=== PATIENT | male | born 1960 | race Caucasian/White ===

== ENCOUNTER 2022-06-16 10:16 | Day surgery (SDC) | payer MEDICARE, MEDICAID, SELFPAY ==
[2022-06-16 10:28] VITALS: BP 147/81; PULSE 86; RESP 17; TEMP 36.5; O2SAT 96
[2022-06-16] MEDS: Tropicam./Phenyleph. (1/2.5%) 5 ML BTL OD ×4 (10:40→10:50)
--- NOTE | 2022-06-16 11:11 | W.ANESPRE ---
General Info Date of Service Date Performed: 06/16/22 Height: 5 ft 8 in Weight: 94.1 kg Body Mass Index (BMI): 31.5 Surgical Procedure: Operation Date: 06/16/22 13:40 Proposed Procedure Side Surgeon p Cataract Extraction with IOL Implant Right López Bernstein MD Meds Allergies and Home Medications Allergies Allergy/AdvReac Type Severity Reaction Status Date / Time niacin Allergy Mild Itching Verified 06/16/22 10:35 [From Niaspan Extended-Release] lovastatin AdvReac Intermediate Other (See Verified 06/16/22 10:35 Comment) topiramate [From Topamax] AdvReac Intermediate Other (See Verified 06/16/22 10:35 Comment) varenicline [From Chantix] AdvReac Intermediate Psychosis Verified 06/16/22 10:35 lithium AdvReac Mild Other (See Verified 06/16/22 10:35 Comment) nabumetone AdvReac Mild Other (See Verified 06/16/22 10:35 Comment) paroxetine AdvReac Mild Agitation Verified 06/16/22 10:35 pravastatin AdvReac Mild Other (See Verified 06/16/22 10:35 Comment) rosuvastatin [From Crestor] AdvReac Mild Other (See Verified 06/16/22 10:35 Comment) simvastatin [From Zocor] AdvReac Mild Other (See Verified 06/16/22 10:35 Comment) Home Medication Medication Instructions Recorded evolocumab 140 mg/mL subcutaneous 140 mg subcut DIRECTED 06/14/22 pen injector (Aaron Robbins) lamotrigine 100 mg tablet 100 mg PO DAILY 06/14/22 lamotrigine 25 mg tablet 25 mg PO DAILY 06/14/22 nicotine (polacrilex) 4 mg buccal 4 - 8 mg buccal DIRECTED 06/14/22 lozenge Current Visit Medications: Current Medications Generic Name Dose Route Start Last Admin Trade Name Freq PRN Reason Stop Dose Admin Acetaminophen 1,000 mg 06/16/22 10:00 Acetaminophen 500 Mg Tab PO 06/16/22 16:00 Q4H PRN PRN Miscellaneous Medication 0 ml 06/16/22 10:00 06/16/22 10:50 Tropicam./Phenyleph. (1/2.5%) 5 Ml Btl OD 06/16/22 16:00 1 drp DIRECTED [facility] Administration Miscellaneous Medication 0 ml 06/16/22 10:00 Prednisolone 1%, Moxifloxacin 0.5%, Nepafenac 0.1% 5ml Btl OD 06/16/22 16:00 DIRECTED RIDGE Tetracaine HCl 0 ml 06/16/22 10:00 Tetracaine 0.5% 4 Ml Btl OD 06/16/22 16:00 DIRECTED [facility] PFSH Active Problems Active Problems: Problem Status Onset Code Nuclear age-related cataract, right eye H25.11 Posterior subcapsular age-related cataract, right eye H25.041 Medical History Medical History ADD (attention deficit disorder) Bipolar II disorder Depression Dyspepsia GERD (gastroesophageal reflux disease) Hypercholesteremia Low back pain Osteoarthritis Tobacco use Tobacco Smoking/Tobacco Use Status: Current every day Tobacco Type: cigarettes Smoking cigarettes per day: 25 Alcohol Alcohol Intake: never Substance Use Substance use: Never Substance use type: does not use Vital Signs and Lab Results Vital Signs Most Recent Vital Signs in EMR: Most Recent Vital Signs Temp Pulse Resp BP Pulse Ox 36.5 C 86 17 147/81 H 96 06/16/22 10:28 06/16/22 10:28 06/16/22 10:28 06/16/22 10:28 06/16/22 10:28 Lab Results Blood Type / Crossmatch: No Data to Display Complete Blood Count: No Data to Display Complete Metabolic Panel: No Data to Display Liver Function Panel: No Data to Display Coagulation Panel: No Data to Display Cardiac Panel: No Data to Display Arterial Blood Gas: No Data to Display Venous Blood Gas: No Data to Display Pancreas Panel: No Data to Display Thyroid Panel: No Data to Display Infectious Disease: No Data to Display Blood Cultures: No Data to Display Toxicology Panel: No Data to Display Anesthesia Assessment and Plan Anesthesia History Personal History: No History of General Anesthesia Family History: No Family History of Anesthesia Complications Exercise Tolerance Exercise Tolerance: Metabolic Equivalents<4 Pertinent Negatives Pertinent Negatives: No Symptoms of GERD Cardiac & Pulmonary Exam Cardiac Exam: Normal S1/S2 Heart Sounds Pulmonary Exam: Clear Bilateral Breath Sounds and Rales Present (right upper lobe. cleared with cough) Implantable Cardiac Device Does patient have a Pacemaker or an ICD?: No Airway Exam Known Difficult Airway: No Mallampati Class: 3 Mouth Opening: Normal (> 3cm) Thyromental Distance: Greater than 3 cm Neck Range of Motion: Full ROM Neck Circumference: Thick Teeth Condition: Normal Dentition ASA Classification ASA Score: ASA 2 Emergency Case?: No NPO Status NPO Status: NPO Clears >2 hours, Solids >8 hours Anesthesia Plan Resuscitation Status: Full Code Anesthesia Technique: MAC Anesthesia Airway Planned: Natural Airway Monitors Used: Standard Monitors Preoperative Comments:: Probably TRINI. Fearful about surgery. Cautioned on trini and sedation. Gave 1/2 MKO
[2022-06-16 11:27] VITALS: BMI 31.5
[2022-06-16] MEDS: Balanced Salt Soln.-PLUS 500 ML BAG (11:46)
[2022-06-16] MEDS: Duovisc Viscoelastic System EACH 1 EACH (11:46)
[2022-06-16] MEDS: Tetracaine 0.5% 4 ML BTL OD (11:46)
[2022-06-16] MEDS: Lidocaine 1% Pres-Free 5 ML VIAL (11:47)
[2022-06-16] MEDS: Phenylephrine/Lidocaine (15/10) MG/ML 1 ML VIAL (11:47)
[2022-06-16] MEDS: Trypan Blue 0.06% 0.5 ML SYR (11:48)
[2022-06-16] MEDS: Povidone-Iodine Ophth 30 ML BTL (11:48)
[2022-06-16 12:02] VITALS: BP 122/88; PULSE 89; RESP 18; TEMP 36.5; O2SAT 18
--- NOTE | 2022-06-16 12:04 | ROE_ITS ---
Date of service: 06/16/22 Time of Service: 12:04 Operative Note Operative Note DATE OF PROCEDURE: 06/16/22 PRE-OP DIAGNOSIS: Nuclear/posterior subcapsular cataract, right eye POST-OP DIAGNOSIS: same PROCEDURE: Cataract extraction using phacoemulsification with intraocular lens implant, right eye SURGEON: López Bernstein ANESTHESIA TYPE: Local By Surgeon and MAC Refer to Anesthesia Record ESTIMATED BLOOD LOSS: 0 PATHOLOGY: none sent COMPLICATIONS: None Patient was transported to: same day Patient's condition: stable Implants: [employer] Eyhance [id number] Indications: Progressive visual loss due to cataract, right eye Procedure Description: CATARACT SURGERY OPERATIVE REPORT PREOPERATIVE DIAGNOSIS: 1. Nuclear/posterior subcapsular cataract, right eye POSTOPERATIVE DIAGNOSIS: Same OPERATION: 1. Cataract extraction using phacoemulsification with posterior chamber intraocular lens implant, right eye. IOL: IOL Highway Design Engineer/Model: Te[employer] Eyhance DIB00 IOL Power: + 22.0 diopters IOL Serial Number: [id number] Optic Diameter: 6.0mm Haptic/Overall Diameter: 13.0mm PHACO INFO: Jay Kirke[employer]urion Vision System with OZil and Active Fluidics Cumulative Dispersed Energy (CDE): 19.08 seconds SURGEON: López Bernstein MD, CODIE ANESTHESIA: Monitored Anesthesia Care (MAC), with local sub-tenon's anesthetic infiltration COMPLICATIONS: None SPECIMENS: None INDICATIONS FOR PROCEDURE: The patient is a 61-year-old male with history of diminished visual acuity in his right eye secondary to the development of significant nuclear/posterior subcapsular cataract. He is significantly symptomatic that he desires cataract surgery and attempt to improve and maximize his vision. See office notes for detailed information. The option of cataract surgery was offered to the patient and he wished to proceed. PROCEDURE: The correct surgical eye was identified and marked as the right eye and the pupil was dilated in the preoperative area using mydriatics and cycloplegics. The dilated pupil size was 6.0 mm. Oral sedation was administered in the form of one half of an Imprimis MKO Melt (midazolam 3mg/ketamine 25mg/ondansetron 2mg). The patient was brought to the operating room where cardiopulmonary monitoring was instituted and surgical time-out was performed, confirming the correct operative eye and IOL power. Topical anesthesia was administered and ophthalmic povidone-iodine 5% was instilled into the conjunctival fornices. Lidocaine gel was applied to the cornea and the asha-ocular area was prepped with Betadine 10% solution and draped in the usual sterile fashion for intraocular surgery, including an aperture drape. A Tegaderm transparent film dressing was cut in half and used to cover the lashes and lid margins. Care was taken to sequester the lashes and lid margins under the Tegaderm dressing. A lid speculum was placed between the lids of the operative eye and the Jay [employer] Revalia operating microscope was maneuvered into position. Ilene scissors were then used to make a conjunctival buttonhole approximately 6mm posterior to the limbus in the inferonasal quadrant. Blunt dissection was carried out to expose bare sclera, and a blunt-tipped sub-tenon?s anesthesia cannula was introduced and passed posteriorly along the globe where non- preserved plain lidocaine was injected into posterior sub-Tenon?s space. A sideport knife was used to make a paracentesis port inferotemporally. VisionBlue was injected into the anterior chamber and allowed to sit for 15 to 20 seconds. Intraocular phenylephrine/lidocaine was injected into the anterior chamber. The anterior chamber was filled with viscoelastic. A keratome knife was used to construct a 2-plane near-clear corneal tunnel extending 2.0mm into clear cornea superiortemporally. A flap was raised on the anterior capsule and capsulorhexis forceps were used to complete a continuous curvilinear capsulorhexis of 5.0 mm. Balanced salt solution was then used to perform cortical cleaving hydrodissecti on and nuclear hydrodelineation until the lens could be freely rotated within the capsular bag. The lens nucleus was then disassembled and removed within the capsular bag and iris plane using phacoemulsification. Residual cortical material was removed using the I/A handpiece. The posterior capsule was carefully polished to remove as much residual lens epithelial cells as safely possible. The capsular bag was then inflated and the anterior chamber deepened with viscoelastic. The lens implant described above was inserted into the capsular bag using the Teod[employer] and [employer] pre-loaded injector. A Kuglen hook was used to dial the IOL into position. Residual viscoelastic was then removed first from posterior to the IOL, then from the anterior chamber using the I/A handpiece. The lens implant was noted to center nicely within the capsular bag. The incisions were stromally hydrated, and the anterior chamber was reformed using BSS. Then 0.5cc of moxifloxacin 1.0mg/ml were injected into the capsular bag and anterior chamber. The incisions were checked with a Weck spear and found to be secure. Several drops of ophthalmic povidone-iodine 5% were then applied to the eye followed by two drops of Imprimis combination prednisolone/moxifloxacin/nepafenac solution. The drapes were removed and a clear plastic protective eye shield was placed over the eye. The patient was then returned to Same Day Surgery in stable condition.
--- NOTE | 2022-06-16 12:04 | W.PM.DSUDISC ---
Date of service: 06/16/22 Time of Service: 12:04 Discharge Plan Disposition Patient Disposition: Home Discharge Details Attending Provider: López Bernstein Home Meds and New Rx's Prescriptions: No Action lamotrigine 25 mg Tablet 25 mg PO DAILY lamotrigine 100 mg Tablet 100 mg PO DAILY nicotine (polacrilex) 4 mg Lozenge 4 - 8 mg buccal DIRECTED Repatha SureClick 140 mg/mL Pen Injector 140 mg SUBCUT DIRECTED Discharge Instructions Stand Alone Forms: Post-op Topical Cataract, Maida Paez (DSU) Discharge Orders Discharge Orders: Discharge Order (Routine); Ordered 06/16/22 Ordered By: López Bernstein DS: Diagnosis Discharge Diagnosis (1) Nuclear age-related cataract, right eye: Status: Resolved (2) Posterior subcapsular age-related cataract, right eye: Status: Resolved
--- NOTE | 2022-06-16 12:22 | W.ANESPOSTOP ---
Postoperative Evaluation Date, Time and Location Date Performed: 06/16/22 Time Performed: 12:15 Patient Location: Day Surgery Unit Vital Signs Most Recent Imported Vital Signs: Most Recent Vital Signs Temp Pulse Resp BP Pulse Ox 36.5 C 89 18 122/88 18 L 06/16/22 12:02 06/16/22 12:02 06/16/22 12:02 06/16/22 12:02 06/16/22 12:02 Pain Score Most Recent Pain Score: Most Recent Pain Score Pain Level 0 06/16/22 12:02 Assessment Mental Status: Awake (Alert & Oriented to Patient Baseline) Airway and Respiratory Function: Patent airway with normal (patient baseline) respiratory exam Cardiovascular Function: Hemodynamically Stable Hydration Status: Adequately Hydrated Nausea & Vomiting: No Nausea or Vomiting Pain: Pt. Denies Any Pain Peripheral Nerve Block: Patient did not receive a nerve block
--- NOTE | 2022-06-16 12:23 | W.ANESPOSTOP ---
Postoperative Evaluation Date, Time and Location Date Performed: 06/16/22 Time Performed: 12:23 Patient Location: Day Surgery Unit Vital Signs Most Recent Imported Vital Signs: Most Recent Vital Signs Temp Pulse Resp BP Pulse Ox 36.5 C 89 18 122/88 18 L 06/16/22 12:02 06/16/22 12:02 06/16/22 12:02 06/16/22 12:02 06/16/22 12:02 Most Recent Vital Signs Temp Pulse Resp BP Pulse Ox 36.5 C 89 18 122/88 18 L 06/16/22 12:02 06/16/22 12:02 06/16/22 12:02 06/16/22 12:02 06/16/22 12:02 Pain Score Most Recent Pain Score: Most Recent Pain Score Pain Level 0 06/16/22 12:02 Assessment Mental Status: Awake (Alert & Oriented to Patient Baseline) Airway and Respiratory Function: Patent airway with normal (patient baseline) respiratory exam Cardiovascular Function: Hemodynamically Stable Hydration Status: Adequately Hydrated Nausea & Vomiting: No Nausea or Vomiting Pain: Pt. Denies Any Pain Peripheral Nerve Block: Patient did not receive a nerve block
[2022-06-16] MEDS: Acetaminophen 500 MG TAB 1000 MG PO (12:26)
[2022-06-16 12:29] VITALS: BP 127/89; PULSE 86; RESP 18; TEMP 36.6; O2SAT 97
== END 2022-06-16 12:33 | disposition home or self-care (01) ==
LOC: SUR 10:16
PROVIDERS: Visit Provider Ophthalmology
PROC: (CPT 66984; principal; 2022-06-16 13:30)
DX: H25.11 Age-related nuclear cataract, right eye (principal); H25.041 Posterior subcapsular polar age-related cataract, right eye; K21.00 Gastro-esophageal reflux disease with esophagitis, without bleeding; Z72.0 Tobacco use
CPT/HCPCS: 66984; V2632